=== PATIENT | male | born 1960 | race Hispanic/Latino ===

== ENCOUNTER 2018-03-17 10:14 | Day surgery (SDC) | payer MEDICARE, MEDICAID ==
[2018-03-16 13:52] VITALS: BMI 29.2
[2018-03-17] MEDS ORDERED: methylPREDNISolone Depo 80 mg/ml Inj ONE (10:29)
[2018-03-17] MEDS ORDERED: Bupivacaine HCl 0.25% PF (30 ml) Inj ONE (10:30)
[2018-03-17] MEDS ORDERED: Lidocaine 1% Inj (20ml) ONE (10:30)
[2018-03-17] MEDS ORDERED: Iohexol 300 10 ML ONE (10:30)
[2018-03-17] MEDS ORDERED: Lactated Ringer's 1,000 ML IV ONE (11:25)
[2018-03-17] MEDS ORDERED: Midazolam 2 MG/2 ML VIAL ONE ×2 (11:26→11:31)
[2018-03-17] MEDS ORDERED: Propofol 10 mg/ml Inj (20 ML) ONE (11:33)
[2018-03-17] MEDS ORDERED: Lactated Ringer's 1,000 ML IV SCH (12:00)
[2018-03-17 12:42] VITALS: RESP 20
[2018-03-17 12:51] VITALS: O2SAT 99
[2018-03-17 13:33] VITALS: BP 128/84; PULSE 77; TEMP 97.9
--- NOTE | 2018-03-17 21:32 | OP ---
PROCEDURE DATE: 03/17/2018 PREOPERATIVE DIAGNOSIS: Lumbar radiculopathy. POSTOPERATIVE DIAGNOSIS: Lumbar radiculopathy. PROCEDURE: Left L3-L4, L4-L5 and L5-S1 transforaminal epidural steroid injection. ANESTHESIOLOGIST: Uziel Connell MD SURGEON: Yaw Rodriguez MD TYPE OF ANESTHESIA: Monitored anesthesia care. COMPLICATIONS: None. SPECIMEN: None. DESCRIPTION OF PROCEDURE: After we had a discussion of the procedure with the patient including its risks, benefits, alternatives, outcome data, possibility of no effect or increased pain, the patient consented to the procedure. He denied any recent infection, bleeding tendencies or being on anticoagulants. A decision was then made to proceed to the OR. The patient was placed on the fluoroscopy table in prone position with two pillows underneath his abdomen. The back was prepped and draped in the usual sterile fashion, and a sterile technique was adhered to during the entire procedure. The L3, L4 and L5 vertebral levels were first identified in the anteroposterior view. Angulation towards the left at approximately 20 degrees was used to maximize the visualization of the left L3, L4 and L5 pedicles. The skin overlying the 6 o'clock position of both pedicles was then infiltrated with 1% lidocaine using a 25-gauge needle. Subsequently, a 22-gauge 2.5-inch spinal needle was then incrementally advanced under fluoroscopic guidance until tip of the needle walked into the intervertebral foramen. After satisfactory positioning of all three needles, approximately 0.5 mL of Isovue contrast was injected showing appropriate epidural nerve root spread without any signs of CSF or intervenous involvement. At this point, approximately 3 mL of 0.25% Marcaine and Depo-Medrol mixture was injected. The needle was then removed. The patient's back was cleaned and dry bandages were applied. The patient was then transferred to the recovery area in good condition without any signs of BLASTING HELPER toxicity or any neurological deficit. He will be following up in our office in approximately two to four weeks. Yaw Rodriguez MD
--- NOTE | 2018-03-18 11:58 | RAD ---
Date of service: 03/17/2018 PROCEDURE: Intraoperative Fluoroscopy. HISTORY: PAIN MANAGEMENT FINDINGS: Fluoroscopic assistance was provided for fluoroscopy/pain management. Please refer to the operative report from MELECIO Goodson. Total fluoroscopic time (continuous mode) utilized during the procedure 43.1 seconds.
== END 2018-03-17 13:30 | disposition home or self-care (01) ==
LOC: H.OPSURG 10:14
PROVIDERS: ATTEND Anesthesiology
DX: M54.16 Radiculopathy, lumbar region (principal); M19.90 Unspecified osteoarthritis, unspecified site; F17.210 Nicotine dependence, cigarettes, uncomplicated
CPT/HCPCS: 64483; 64484; J1040; J2250; J2704; J3010; J7120; Q9967

== ENCOUNTER 2018-05-19 10:11 | Day surgery (SDC) | payer MEDICARE, MEDICAID ==
[2018-03-16 13:52] VITALS: BMI 29.2
[2018-05-19] MEDS ORDERED: Lactated Ringer's 1,000 ML IV ONE (11:01)
--- NOTE | 2018-05-19 11:29 | CP.SDSHP ---
Same Day Surgery H & P - History Proposed Procedure: Lumbar epidural steroid injections Pre-Op Diagnosis: Lumbar radiculopathy - Previous Medical/Surgical History Cardiac: Hypertension - Allergies Allergies: Allergies No Known Allergies Allergy (Verified 05/19/18 10:28) - Physical Exam Vital Signs: Vital Signs 05/19/18 05/19/18 10:30 10:35 Temperature 97.9 F Pulse Rate 84 84 Respiratory 18 Rate Blood Pressure 140/83 O2 Sat by Pulse 97 Oximetry Neuro: WNL Heart: WNL Lungs: WNL - Impression Impression: Lumbar radiculopathy Pt. Evaluated Today:Candidate for Anesthesia & Procedure: Yes Short Stay Discharge - Short Stay Discharge Admitting Diagnosis/Reason for Visit: M54.16 Disposition: HOME/ ROUTINE Referrals: Mikal Pandey MD [Primary Care Provider] -
[2018-05-19] MEDS ORDERED: MethylPREDNISolone Depo 40 mg/ml Inj ONE (11:38)
[2018-05-19] MEDS ORDERED: Iohexol 300 10 ML ONE (11:38)
[2018-05-19] MEDS ORDERED: Bupivacaine HCl 0.5% PF (30 ml) Inj ONE (11:39)
[2018-05-19] MEDS ORDERED: Bupivacaine HCl 0.25% PF (30 ml) Inj ONE (11:39)
[2018-05-19] MEDS ORDERED: Lidocaine 1% Inj (20ml) ONE (11:39)
[2018-05-19] MEDS ORDERED: Bupivacaine HCl 0.25% PF (30 ml) Inj IJ ONE ×2 (12:10→12:15)
[2018-05-19] MEDS ORDERED: Iohexol 300 10 ML IJ ONE ×2 (12:10→12:15)
[2018-05-19] MEDS ORDERED: Lidocaine 1% Inj (20ml) IJ ONE ×2 (12:10→12:15)
[2018-05-19] MEDS ORDERED: methylPREDNISolone Depo 80 mg/ml Inj IM ONE ×2 (12:10→12:15)
[2018-05-19] MEDS ORDERED: Midazolam 2 MG/2 ML VIAL ONE (12:14)
[2018-05-19] MEDS ORDERED: Propofol 10 mg/ml Inj (20 ML) ONE (12:16)
[2018-05-19] MEDS ORDERED: Lactated Ringer's 1,000 ML IV SCH (13:45)
[2018-05-19 14:05] VITALS: O2SAT 96
[2018-05-19 14:39] VITALS: BP 143/89; PULSE 68; RESP 20; TEMP 97.9
--- NOTE | 2018-05-19 21:34 | OP ---
PROCEDURE DATE: 05/19/2018 PREOPERATIVE DIAGNOSIS: Lumbar radiculopathy. POSTOPERATIVE DIAGNOSIS: Lumbar radiculopathy. PROCEDURE: Left L4-L5, L5-S1 transforaminal epidural steroid injection. ANESTHESIOLOGIST: Anuj Kelley MD SURGEON: Yaw Rodriguez MD TYPE OF ANESTHESIA: Monitored anesthesia care. COMPLICATIONS: None. SPECIMENS: None. DESCRIPTION OF PROCEDURE: After we had discussion of the procedure with the patient including its risks, benefits, alternatives, outcome data, possibility of no effect or increased pain, the patient consented to the procedure. He denies any recent infection, bleeding tendencies, or being on anticoagulants. A decision was then made to proceed to the OR. The patient was placed on a fluoroscopy table in a prone position with two pillows underneath his abdomen. The back was prepped and draped in a usual sterile fashion and a sterile technique was adhered to during the entire procedure. The L4 and L5 vertebral levels were first identified on the anterior-posterior view. Angulation towards the left at approximately 25 degrees was used to maximize the visualization of the left L4 and L5 pedicles. The skin overlying the 6 o'clock position of both pedicles was then infiltrated with 1% lidocaine using 25-gauge needle. Subsequently, a 22-gauge 3-1/2-inch spinal needle was incrementally advanced under fluoroscopic guidance until tip of the needle walked into the intervertebral foramen and this was confirmed by injecting approximately 0.5 mL of Isovue contrast demonstrating appropriate spread into the epidural space and also along the nerve root. After satisfactory position of both needles, approximately 3 mL of 0.25% Marcaine and Depo-Medrol mixture was injected. The needle was then removed. The patient's back was cleaned and dry bandages were applied. The patient was then transferred to the recovery area in good condition without any signs of MACHINE UMBRELLA TIPPER toxicity or any neurological deficit. He will be following up in the office in approximately two to four weeks. Yaw Rodriguez MD
--- NOTE | 2018-05-21 09:09 | RAD ---
Date of service: 05/19/2018 PROCEDURE: Intraoperative Fluoroscopy. HISTORY: PAIN MANAGEMENT FINDINGS: Fluoroscopic assistance was provided. Fluoroscopy time = 20 sec. Radiation dose = 8.17 mGy. Please refer to the operative report from MELECIO Goodson.
== END 2018-05-19 15:05 | disposition home or self-care (01) ==
LOC: H.OPSURG 10:11
PROVIDERS: ATTEND Anesthesiology
DX: M54.16 Radiculopathy, lumbar region (principal); I10 Essential (primary) hypertension
CPT/HCPCS: 64483; 64484; J1030; J1040; J2001; J2250; J2704; J3010; J7120; Q9967